=== PATIENT | male | born 1980 ===

== ENCOUNTER 2020-01-30 06:30 | Day surgery (SDC) | payer OTHER ==
[2020-01-30] MEDS ORDERED: PERCOCET 5-3251 EACH PO (12:04)
[2020-01-30] MEDS ORDERED: RECTICARE30 GM TOP (12:05)
== END 2020-01-30 16:15 | disposition home or self-care (01) ==
LOC: CIR.AMB 06:30 → ADM 11:15 → CIR.AMB 11:15
PROVIDERS: ATTEND Surgery
DX: K60.3 Anal fistula (principal)

== ENCOUNTER 2024-05-28 06:00 | Day surgery (SDC) | payer OTHER ==
[2024-05-23 10:52] LABS: PH,URINE 7.5 (5.0-8.0); URINE APPEARANCE Clear; URINE BILIRRUBIN Negative (NEGATIVE); URINE BLOOD Negative; URINE COLOR Yellow; URINE GLUCOSE Negative (NEGATIVE); URINE KETONE Negative (NEGATIVE); URINE LEUKOCYTE Trace; URINE NITRATE Negative; URINE PROTEIN Negative (NEGATIVE); URINE UROBILINOGEN 0.2 E.U./dl
[2024-05-23 10:53] LABS: HEMOGLOBIN 14.6 g/dL (13-16.00); MEAN CELL VOLUME 85.3 fL (80.0-100.00); MEAN CORPUSCULAR HEMOGLOBIN 29.6 pg (27.00-32.0); MEAN CORPUSCULAR HGB CONC 34.7 g/dl (32.0-36.0); PLATELET COUNT 296 K/uL (150-450); RED BLOOD COUNT 4.92 M/uL (4.00-6.00); RED CELL DISTRIBUTION WIDTH 12.9 % (11.5-14.5)
[2024-05-23 10:56] LABS: URINE EPITHELIAL CELLS 2.1 uL (0.0-38.8); URINE RBC 3.3 uL (0.0-20.8)
[2024-05-23 11:01] LABS: URINE WBC 0.9 uL (0.0-23.2)
[2024-05-23 11:10] LABS: INR 1.06; PARTIAL THROMBOPLASTIN TIME 28.4 SECONDS (22.0-34.0); PROTHROMBIN TIME 11.5 SECONDS (9.0-11.5)
[2024-05-23 12:18] LABS: BILIRUBIN TOTAL 0.93 mg/dL (0.3-1.2); CREATININE SERUM 0.78 mg/dL (0.70-1.30); GFR 108.13; GLOBULINA 3.2 G/DL (2.4-3.5); POTASSIUM 4.06 mEq/L (3.5-5.1); TOTAL PROTEIN 7.2 gm/dL (6.4-8.2)
[~2024-05-28 06:00] MED LIST: PERCOCET 5-3251 EACH PO; RECTICARE30 GM TOP
[2024-05-28] MEDS ORDERED: CEFAZOLIN SODIUM 1,000 MG VIAL IV ONE (14:30)
[2024-05-28] MEDS ORDERED: DEXAMETHASONE SODIUM PHOSPHATE 4 MG/ML VIAL IV ONE (14:30)
[2024-05-28] MEDS ORDERED: OXYMETAZOLINE HCL 15 ML NASAL DROPS NASAL ONE (14:30)
== END 2024-05-28 17:45 | disposition home or self-care (01) ==
LOC: CIR.AMB 06:00
PROVIDERS: ATTEND Otolaryngology
DX: J38.3 Other diseases of vocal cords (principal)